=== PATIENT | male | born 1970 | race Caucasian/White ===

== ENCOUNTER 2025-08-02 10:45 | Emergency (ER) | payer BC, SELFPAY ==
[~2025-08-02] VITALS: Ht 182.9 cm; Wt 108.0 kg
[2025-08-02 11:06] VITALS: TEMP 98.2
--- NOTE | 2025-08-02 12:07 | Physician Documentation ---
History of Present Illness ~ Chief Complaint: Headache Stated Complaint: HEADACHE Time Seen by MD: 11:52 [facility] 54-year-old male patient presents with neck pain and headache. States this has been going on for two weeks. 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 States" I do not have headaches."He does report modest improvement with Tylenol. Denies any focal deficits shortness of breath chest pain or dizziness Day of Onset: Aug 02, 2025 Medication Reconciliation Allergies: Coded Allergies: No Known Allergies (Unverified , 08/02/25) Review of Systems All Other Systems at this time: Reviewed and Negative ROS As stated above in the HPI, otherwise all systems are reviewed and negative. Physical Exam Vital Signs: Temperature: 98.2, Source: Temporal, Heart Rate: 99, Respiratory Rate: 18, BP: 142/96, Pulse Oximetry: 96, Weight: 108.000 Progress Results/Orders Results/Orders Completed Orders - JONATAN SAMUEL SOFTWARE DESIGN ANALYST Ketorolac Trometh 30mg/Ml Vial (Toradol (08/02/25 12:05) Normal Saline 1000ml (0.9% Sodium Chlori (08/02/25 12:05) Ondansetron Inj. (Zofran 4mg/2ml Vial) (08/02/25 12:50) Medications Received in ER Medications (Trade) Dose Ordered Sig/Venu Route PRN Reason Start Time Stop Time Status Last Admin Dose Admin (Toradol inj. 30mg/ml) 30 mg ONCE ONCE IM 08/02/25 12:05 08/02/25 12:06 DC 08/02/25 12:10 30 MG (0.9% sodium chloride (NS) 1000ml IV soln) 1,000 ml ONCE ONCE IVB 08/02/25 12:05 08/02/25 12:06 DC 08/02/25 12:11 1,000 ML (Zofran 4mg/2ml vial) 4 mg ONCE ONCE IV 08/02/25 12:50 08/02/25 12:51 DC 08/02/25 12:57 4 MG Vital Signs 08/02/25 08/02/25 08/02/25 11:06 12:10 13:24 Temp 98.2 Pulse 99 69 Resp 18 16 15 B/P (MAP) 142/96 137/88 Pulse Ox 96 99 Medical Decision Making Additional information obtaine: N/A Findings The patient Toradol Zofran and a fluid bolus to help with his suspected migraine. Reported moderate improvement. This time he presents as safe for discharge I do not see any reason to perform any emergent imaging at this time. Differential Dx:Considerations: Include: [place]-Cluster, [place]-Migraine, [place]- Hypertensive, [place]-Muscular contraction, [place]-Post lumbar puncture, Carbon monoxide toxicity, Close head injuyr, CVA, Fever induced, Hemorrhage-Epidural, Hemorrhage-Intracerebral, Hemorrhage-Subarachnoid, Hemorrhage-Subdural, Mass lesion, Meningitis, Post-traumtic, Pseudotumor cerebri, Sinusitis, Temporal arteritis, Trigeminal neuralgia, Other Departure Disposition: 01 HOME / SELF CARE / HOMELESS Impression: Primary Impression: Migraine Condition: Improved Discharge Instructions: Headache Referrals: NO PRIMARY CARE PROVIDER (PCP) Education Educated: Patient Educated regarding: diagnosis Signature Scribe Signature: cd Attestation: Scribed for Jonatan Samuel Heavy Lift Rigger by Jonatan Ya NP . 08/02/25 12:06 JONATAN SAMUEL NP Aug 02, 2025 12:07
[2025-08-02] MEDS: ketorolac trometh 30MG/ML vial 30 MG/ML VIAL IM ONE (12:10)
[2025-08-02] MEDS: normal saline 1000ML IV soln IVB ONE (12:11)
[2025-08-02] MEDS: ondansetron/PF 4mg/2ml inj IV ONE (12:57)
[2025-08-02 13:24] VITALS: BP 137/88; PULSE 69; RESP 15; O2SAT 99
== END 2025-08-02 13:26 | disposition home or self-care (01) ==
LOC: ER 10:45
DX: G43.909 Migraine, unspecified, not intractable, without status migrainosus (principal)
CPT/HCPCS: 96361; 96372; 96374; 99284; J1885; J2405; J7030